=== PATIENT | female | born 1970 | race Caucasian/White ===

== ENCOUNTER 2022-10-09 06:48 | Observation (INO) ==
--- NOTE | 2022-10-08 21:47 | Anesthesiology Consultation ---
Date of Service October 08, 2022 Assessment & Plan (1) Encounter for pre-operative examination: Chart Review Chart Review: Acceptable Risk for Surgery History Surgery Operation Date: 10/09/22 08:00 Proposed Procedures p SVT Ablation w/Mapping w/Anesthesia - Anastasiya Riley DO Allergies Allergy/AdvReac Type Severity Reaction Status Date / Time No Known Allergies Allergy Unverified 11/29/19 14:26 Medications Home Medications Medication Instructions Recorded Confirmed Last Taken aspirin 81 mg chewable tablet 81 mg PO QAM 11/29/19 11/29/19 Unknown atorvastatin 20 mg tablet (Lipitor) 20 mg PO HS 11/29/19 11/29/19 Unknown eletriptan 20 mg tablet (Relpax) 20 mg PO UD PRN MIGRAINES 11/29/19 11/29/19 Unknown metoprolol tartrate 50 mg tablet 50 mg PO BID 11/29/19 11/29/19 Unknown topiramate 100 mg tablet (Topamax) 100 mg PO HS 11/29/19 11/29/19 Unknown topiramate 25 mg tablet (Topamax) 25 mg PO BID 11/29/19 11/29/19 Unknown Past Medical History Medical History (Updated 10/08/22 @ 21:45 by Felice Recio MD) ASD (atrial septal defect) Left to right shunting Hyperlipidemia Migraines SOB (shortness of breath) SVT (supraventricular tachycardia) Paroxysmal Tachycardia on beta stevan Past Surgical History Surgical History Hx laparoscopic cholecystectomy Hx of hysterectomy LAP VAGINAL ASSISTED HYSTERECTOMY Hx of tonsillectomy Social History Smoking Status: Never smoker Hx Alcohol Use: No Hx Substance Use: No substance use type: does not use Testing Echocardiogram Date: 12/10/19 EF: 60-65% LV Function: normal Other Findings: + atrial enlargement Valvular Disease: + no significant valvular disease atrial septal defect with significant left to right shunt Right ventricle dilated be functioning normally
[2022-10-09] MEDS ORDERED: LIDOCAINE 1% LOCAL 20 ML VIAL ONE (06:56)
[2022-10-09] MEDS ORDERED: MIDAZOLAM HCL 1 MG/ML 2ML VIAL ONE (07:17)
[2022-10-09] MEDS ORDERED: PROPOFOL IV EMULSION 10 MG/ML 20 ML VIAL IV ONE (07:17)
[2022-10-09] MEDS ORDERED: fentaNYL citrate 100 MCG/2 ML VIAL ONE (07:18)
[2022-10-09] MEDS ORDERED: ceFAZolin 2000MG 2,000 MG/15 ML SYR IV ONE (07:46)
--- NOTE | 2022-10-09 07:46 | History & Physical Report ---
Date of Service October 09, 2022 Assessment & Plan (1) SVT (supraventricular tachycardia): Plan: pt for EPS with possible ablation; re-discussed the procedure and potential risks with the pt; she expressed an understanding and consents signed. (2) ASD (atrial septal defect): History of Present Illness Chief Complaint: palpitations Primary Care Provider: Thomas Lin MD pt presents for an elective EPS with possible ablation due to recurrent palpitations for years that respond to vagal maneuvers in the past but are not working recently. Allergies Allergy/AdvReac Type Severity Reaction Status Date / Time No Known Allergies Allergy Verified 10/09/22 07:22 Home Medications Medication Instructions Recorded Confirmed Type aspirin 81 mg chewable tablet 81 mg PO QAM 11/29/19 10/09/22 History atorvastatin 20 mg tablet (Lipitor) 20 mg PO HS 11/29/19 10/09/22 History eletriptan 20 mg tablet (Relpax) 20 mg PO UD PRN MIGRAINES 11/29/19 10/09/22 History metoprolol tartrate 50 mg tablet 50 mg PO BID 11/29/19 10/09/22 History topiramate 25 mg tablet (Topamax) 25 mg PO HS 11/29/19 10/09/22 History Past Med/Surg History Medical History ASD (atrial septal defect) Left to right shunting Hyperlipidemia Migraines SOB (shortness of breath) SVT (supraventricular tachycardia) Paroxysmal Tachycardia on beta stevan Surgical History Hx laparoscopic cholecystectomy Hx of hysterectomy LAP VAGINAL ASSISTED HYSTERECTOMY Hx of tonsillectomy Social History Smoking Status: Never smoker Second Hand Exposure: No; Hx Alcohol Use: No Hx Substance Use: No Preferred Language: German Communication Ability: Effective Professor Of Biochemistry Required: No Beliefs That Will Affect Care: None Current Living Situation: Spouse Feels Safe at Home: Yes Safety Concerns: Feels Safe At This Time Assistive Devices: None Review of Systems Review of Systems: All systems reviewed & are unremarkable except as noted in HPI & below Physical Exam Physical Exam: aaox3, NAD NC/AT, EOMI Supple No JVD Nrl S1/S2, No murmur CTA b/l no w/r/r soft nt/nd no LE edema b/l skin intact no focal deficits Results & Data Results & Data ([facility]) Vital Signs (Past 12 Hours) Vital Signs O2 Del Method 10/09/22 07:13 Room Air
[2022-10-09] MEDS ORDERED: ceFAZolin 330 MG/ML 1 GM VIAL ONE (08:04)
[2022-10-09] MEDS ORDERED: ePHEDrine sulfate 50 MG/ML AMP ONE (08:32)
[2022-10-09] MEDS ORDERED: ISOPROTERENOL HCL 0.2 MG/ML 5 ML AMP IV ONE (08:37)
[2022-10-09] MEDS ORDERED: PROPOFOL IV EMULSION 10 MG/ML 100 ML VIAL IV ONE (09:18)
[2022-10-09] MEDS ORDERED: ONDANSETRON INJ 2 MG/ML 2 ML VIAL ONE (09:19)
--- NOTE | 2022-10-09 10:13 | Operative Report ---
Post Operative Report Pre & Post Diagnosis Pre: SVT Post: AVNRT Operation Date: 10/09/22 08:00 <No data on this case meets the specified criteria> I identified the patient and participated in the time-out.: Yes Procedure Operation Date: 10/09/22 08:00 Actual Procedures p EPS + Ablation for SVT Flutter - Anastasiya Riley DO s Ultrasound Vascular Access - Anastasiya Riley DO Surgeon Anastasiya Riley, Crew Car Driver none Estimated Blood Loss 5 Findings Consistent with Post-Op Diagnosis Specimens none Description of Procedure see official report I attest to the content of the Intraoperative Record and any orders documented therein. Any exceptions are noted below.
--- NOTE | 2022-10-09 10:39 | Anesthesiology Progress Note ---
Date of Service October 09, 2022 Anesthesia Post Procedure Vital Signs Vital Signs: Pulse Resp BP Pulse Ox O2 Del Method 10/09/22 10:36 84 16 98/73 L 98 Room Air 10/09/22 07:13 Room Air Transfer of Care Handoff Completed per policy Notes Mental Status: alert / awake / arousable Patient Amnestic to Procedure: Yes Nausea / Vomiting: adequately controlled Pain: adequately controlled Airway Patency, RR, SpO2: stable & adequate BP & HR: stable & adequate Hydration State: stable & adequate Anesthetic Complications: no major complications apparent
--- NOTE | 2022-10-09 12:16 | CT Scan Report ---
ABDOMEN AND PELVIS CT WITHOUT CONTRAST CT DOSE: 741.68 mGy.cm HISTORY: Acute right-sided abdominal pain status post cardiac ablation post ablation TECHNIQUE: Multiaxial CT images of the abdomen and pelvis were performed without contrast. A dose lo wering technique was utilized adhering to the principles of ALARA. COMPARISON STUDY: None. FINDINGS: Atrial septal occlusion device. Trace pericardial effusion. The heart is normal in size. Chowdhury bsegmental dependent bibasilar atelectasis. 5 mm solid nodule the basal left lower lobe on image 33 i s likely benign. No pneumatosis or pneumoperitoneum. The unenhanced spleen, mildly atrophic pancreas and adrenal glands are unremarkable. Cholecystectomy. The liver is within normal limits. Unremarkable right kidney. 2 mm nonobstructing calculus of the chowdhury perior pole left kidney. 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 No ureteral calculi or hydronephrosis. Partially decompressed urinary bladder with mild wall thickening. Hysterectomy.. Unr emarkable appearance of the unenhanced aorta. There is decreased AP dimension of the IVC. There is an acute right-sided retroperitoneal hematoma measuring up to approximately 4.7 x 10.0 x 19.0 cm abutti ng and encasing the right external iliac vein. No intramuscular extension identified. No bowel obstruction or bowel wall thickening. Stranding within the right inguinal tissues compatible with recent vascular access. Mild colonic fecal retention. Normal appendix. Unremarkable soft tissue s. There is no acute fracture. Chronic left-sided L5 pars defects without spondylolisthesis. IMPRESSION: 1. Acute right-sided retroperitoneal hematoma measures up to approximately 19 cm in length abuts and encases the right external iliac vein compatible with acute vascular injury in this patient with rece nt right inguinal vascular access. 2. Left nephrolithiasis. 3. Incidental findings as above. ACT 112: Negative or not required by law. The above report was generated using voice recognition software. It may contain grammatical, syntax o r spelling errors. Electronically signed by: Ori Hensley M.D. 10/09/2022 12:14 PM
--- NOTE | 2022-10-09 12:43 | Cardiology Progress Note ---
Date of Service October 09, 2022 Assessment & Plan (1) Retroperitoneal hematoma: Plan: pt had post op RLQ pain; a CT scan was performed that revealed a retroperitoneal hematoma wrapping around the right iliac vein. I spoke with vascular surgery who recommended no intervention necessary; monitor H/H and vitals. Will admit to telemetry overnight Hold ASA and metoprolol for now Bedrest until tomorrow If remains stable from a vital signs, H/H and ambulates ok then hopefully can discharge tomorrow and have repeat CT scan as an outpt (2) AVNRT (AV apple re-entry tachycardia): Plan: s/p Slow pathway modification ablation (3) ASD (atrial septal defect): Subjective Pt had + right lower abdominal pain Physical Exam Physical Exam: aaox3, NAD NC/AT, EOMI Supple No JVD Nrl S1/S2, No murmur CTA b/l no w/r/r soft nt/nd no LE edema b/l skin intact no focal deficits Results & Data ([facility]) Vital Signs (Past 12 Hours) Vital Signs Pulse Resp BP Pulse Ox O2 Del Method 10/09/22 12:30 78 14 110/73 99 Room Air 10/09/22 12:00 78 16 107/77 98 Room Air 10/09/22 11:45 80 16 115/81 99 Room Air 10/09/22 11:30 82 14 115/72 98 Room Air 10/09/22 11:15 82 16 107/72 99 Room Air 10/09/22 11:00 84 16 94/70 L 98 Room Air 10/09/22 10:45 84 16 94/65 L 98 Room Air 10/09/22 10:20 82 16 90/72 L 98 Room Air 10/09/22 10:36 84 16 98/73 L 98 Room Air 10/09/22 07:13 Room Air Diagnostic Findings CT pelvis: +retroperitoneal hematoma 9cm wrapping around the right iliac vein
[2022-10-09] MEDS ORDERED: ACETAMINOPHEN 325 MG TAB PO PRN (12:51)
[2022-10-09 13:33] LABS: Hematocrit (blood only) 38.8 % (34.1-44.9); Hemoglobin 12.5 g/dl (12.0-16.0); Mean Corpuscular Hemoglobin 29.4 pg (25.0-34.0); Mean Corpuscular Hgb Conc 32.2 g/dL (32.0-36.0); Mean Corpuscular Volume 91.3 fL (80.0-100.0); Mean Platelet Volume 11.7 fL (9.4-12.3); Platelet Count 208 K/uL (130-400); RDW Coefficient of Variation 13.1 % (11.5-14.5); RDW Standard Deviation 43.4 fL (36.4-46.3); Red Blood Count 4.25 M/uL (3.93-5.22); White Blood Count 14.19 K/ul (4.8-10.8)
[2022-10-09 13:57] LABS: Calcium 8.5 mg/dl (8.5-10.1); Creatinine Clr Calc Pharmacy 82.8 ml/min; Est GFR (African American) 101.5 ml/min; Est GFR (Non-African American) 87.5 ml/min; Potassium 3.9 mmol/L (3.5-5.1)
[2022-10-09] MEDS: oxyCODONE/ACETAMINOPHEN 5mg/325mg TAB PO PRN ×2 (13:59→23:28)
--- NOTE | 2022-10-09 14:39 | Electrocardiogram Report ---
Test Reason : Blood Pressure : / mmHG Vent. Rate : 079 BPM Atrial Rate : 079 BPM P-R Int : 154 ms QRS Dur : 074 ms QT Int : 420 ms P-R-T Axes : 063 035 066 degrees QTc Int : 481 ms Normal sinus rhythm Nonspecific ST abnormality Prolonged QT Abnormal ECG No previous ECGs available Confirmed by Yoav Merida ([id number]) on 10/09/2022 2:38:38 PM Referred By: Anastasiya Riley Confirmed By:Yoav Merida
[2022-10-09] MEDS ORDERED: TOPIRAMATE 25 MG TAB PO SCH (21:00)
[2022-10-09] MEDS ORDERED: ATORVASTATIN 20 MG TAB PO SCH (21:00)
[2022-10-09 21:35] LABS: Hematocrit (blood only) 32.9 % (34.1-44.9); Mean Corpuscular Hemoglobin 29.5 pg (25.0-34.0); Mean Corpuscular Hgb Conc 33.4 g/dL (32.0-36.0); Mean Corpuscular Volume 88.2 fL (80.0-100.0); Mean Platelet Volume 11.9 fL (9.4-12.3); Platelet Count 205 K/uL (130-400); RDW Standard Deviation 41.7 fL (36.4-46.3); Red Blood Count 3.73 M/uL (3.93-5.22)
[2022-10-10] MEDS: oxyCODONE/ACETAMINOPHEN 5mg/325mg TAB PO PRN ×2 (06:53→16:24)
[2022-10-10 07:13] LABS: Hemoglobin 10.9 g/dl (12.0-16.0); Mean Corpuscular Hemoglobin 29.7 pg (25.0-34.0); Mean Corpuscular Volume 89.9 fL (80.0-100.0); Mean Platelet Volume 11.6 fL (9.4-12.3); Platelet Count 184 K/uL (130-400); RDW Coefficient of Variation 13.1 % (11.5-14.5); RDW Standard Deviation 42.8 fL (36.4-46.3); Red Blood Count 3.67 M/uL (3.93-5.22); White Blood Count 7.65 K/ul (4.8-10.8)
--- NOTE | 2022-10-10 12:36 | Cardiology Progress Note ---
Date of Service October 10, 2022 Assessment & Plan (1) Retroperitoneal hematoma: Plan: Pt H/H remains stable. She still has discomfort at the lower groin site. If she ambulates more throughout the day and feels ok and vitals are ok she can go home later today She will have f/u with me and a f/u CT as an outpt I also recommend she look into FMLA as I think she having next week off would be beneficial for her healing (2) AVNRT (AV apple re-entry tachycardia): Plan: can stop metoprolol (3) ASD (atrial septal defect): Plan: restart ASA as H/H is stable Admission and Anticipated Discharge Date Admission Date: October 09, 2022 Subjective Pt seen earlier today Pt had no events overnight She was up to the bedside commode a few times and does still have some pain and discomfort still in the right lower groin level Review of Systems Review of Systems: All systems reviewed & are unremarkable except as noted in Subjective Physical Exam Physical Exam: aaox3, NAD NC/AT, EOMI Supple No JVD Nrl S1/S2, No murmur CTA b/l no w/r/r soft nt/nd rigth lower quadrant soft no palpable hematoma but is naphthalene still operator no LE edema b/l skin intact no focal deficits Results & Data ([facility]) Vital Signs (Past 12 Hours) Vital Signs Temp Pulse Pulse Resp BP BP Pulse Ox 10/10/22 11:30 91 H 17 99 10/10/22 11:20 87 19 98 10/10/22 11:20 112/68 10/10/22 11:00 78 10 L 99 10/10/22 10:40 84 18 99 10/10/22 11:36 36.9 C 10/10/22 08:12 36.7 C 87 16 88/64 L 99 10/10/22 03:36 36.6 C 81 16 102/68 98 O2 Del Method 10/10/22 11:30 Room Air 10/10/22 11:20 10/10/22 11:20 10/10/22 11:00 10/10/22 10:40 10/10/22 11:36 10/10/22 08:12 Room Air 10/10/22 03:36 Room Air Laboratory Results Abnormal Lab Results 10/09/22 10/09/22 10/09/22 13:16 13:16 20:42 WBC 14.19 H 11.00 H RBC 4.25 3.73 L Hgb 12.5 11.0 L Hct 38.8 32.9 L MCV 91.3 88.2 MCH 29.4 29.5 MCHC 32.2 33.4 RDW Std Deviation 43.4 41.7 RDW Coeff of Char 13.1 13.0 Plt Count 208 205 MPV 11.7 11.9 Sodium 139 Potassium 3.9 Chloride 110 H Carbon Dioxide 21 Anion Gap 8 BUN 10 Creatinine 0.77 Est Cr Clr Drug Dosing 82.8 Est GFR ( Amer) 101.5 Est GFR (Non-Af Amer) 87.5 BUN/Creatinine Ratio 13.0 Glucose 119 H Calcium 8.5 10/10/22 06:26 WBC 7.65 RBC 3.67 L Hgb 10.9 L Hct 33.0 L MCV 89.9 MCH 29.7 MCHC 33.0 RDW Std Deviation 42.8 RDW Coeff of Char 13.1 Plt Count 184 MPV 11.6 Sodium Potassium Chloride Carbon Dioxide Anion Gap BUN Creatinine Est Cr Clr Drug Dosing Est GFR ( Amer) Est GFR (Non-Af Amer) BUN/Creatinine Ratio Glucose Calcium
[2022-10-10] MEDS ORDERED: ONDANSETRON INJ 2 MG/ML 2 ML VIAL IV PRN (17:32)
[2022-10-10] MEDS ORDERED: ONDANSETRON INJ 2 MG/ML 2 ML VIAL ONE (17:33)
--- NOTE | 2022-10-21 06:41 | Operative Report (OR) ---
DATE OF PROCEDURE: 10/09/2022. PREOPERATIVE DIAGNOSIS: Supraventricular tachycardia. POSTOPERATIVE DIAGNOSIS: Typical atrioventricular apple reentry tachycardia. SURGEON: Anastasiya Riley DO SENIOR TELECOMMUNICATIONS SPECIALIST: None. PROCEDURE: Electrophysiology study, venous ultrasound guidance access, slow pathway modification radiofrequency ablation, and 3D His bundle and coronary sinus os recordings. ANESTHESIA: Monitored anesthetic care administered via anesthesiology. Please refer to their notes for complete details, but they used a total of 530 mg of propofol, 2 mg of Versed, and 100 mcg of fentanyl. They gave 20 mg of ephedrine and 4 mg of Zofran. The start time was 0824, end time was 1014. INTRAVENOUS FLUIDS: 300 mL. ANTIBIOTICS: 2 grams of Ancef. COMPLICATIONS: A retroperitoneal hematoma. INDICATIONS FOR PROCEDURE: This is a 52-year-old female with a past medical history for ASD closure device, hyperlipidemia, migraines. He has been having episodes of SVT and was recommended an electrophysiology study with possible ablation. CONSENT: Consent was obtained prior to the patient going into the electrophysiology lab. The patient was informed of the risks, benefits, and alternatives to the procedure. Risks include, but are not limited to, sudden cardiac , cardiac arrhythmia, cerebrovascular accident, myocardial infarction, injury to the blood vessels, chamber of the heart or the [place] electrical system where she would need a permanent pacemaker emergently, bleeding, and infection. The patient understood these risks and agreed to the procedure as planned. Informed consent was obtained. DESCRIPTION OF THE PROCEDURE: The patient was brought into the electrophysiology lab in a fasting state. She was connected to continuous cardiac monitoring. A time-out was performed to ensure patient identity and procedure correctly. She was prepped and draped over the bilateral groins in a normal surgical standard fashion. Monitored anesthetic care was given throughout the procedure for patient's comfort level. [place] precautions were maintained throughout the procedure. A 10 mL of 1% lidocaine were given for local anesthesia in the bilateral groins. Then, using the modified Seldinger technique under ultrasound guidance, the venous access was obtained through the following manner. The left femoral vein had a 7-Bangladeshi sheath followed by a decapolar coronary sinus DF curved catheter positioned out in the coronary sinus. A 7-Bangladeshi sheath followed by a Hisser 6-pole catheter positioned over the His bundle. A 6-Bangladeshi sheath followed by a Kori quadripolar catheter positioned in the right ventricular apex. The right femoral vein had a 6-Bangladeshi sheath with a quadripolar Kori catheter positioned in the right atrial appendage and a 6-Bangladeshi sheath that was ultimately swapped out for an SRO and a 4 mm DF curved non-irrigated ablation catheter. With all the diagnostic catheters in position, an electrophysiology study was performed with the following findings: Baseline intervals, sinus cycle length was 785 milliseconds, the NM interval was 176 milliseconds, the QRS was 71 milliseconds, and the QTc was 375 milliseconds, AH was 71 milliseconds, HV 61 milliseconds. With right atrial burst pacing, I easily went into tachycardia. Tachycardia cycle length was 393 milliseconds. VA time was 58 milliseconds. It started with an AH jump. I was burst atrial pacing at 350 milliseconds. With ventricular entrainment, I did have a VAV response with continuation of the tachycardia, confirming that it was AVNRT. I did find the fast pathway ERP to be 600/300 with some echo beat and I easily reinduced the SVT again at 600/280 with atrial extrastimuli. The atrial ERP was 600/260. The AV node ERP was less than or equal to the atrial ERP at [address] The right ventricular ERP was 600/250 and 400/220, I was nable to finish a 400 drive train as I kept going into the SVT at 400/330 milliseconds, and I never was able to find an AV Wenckebach because I kept going into the SVT. With the recurrent easily inducible SVT that was diagnosed as AVNRT, we set up to do an AVNRT ablation. A 6-Bangladeshi right femoral vein sheath was swapped out for an SRO sheath. Then the 4mm DF curved non-irrigated ablation catheter was advanced through the SRO sheath and then intracardiac His bundle cloud 3D mapping was performed along with the os of the coronary sinus. I then placed the ablation catheter on the low right atrial septum and when I had a nice A:V ratio, I then came on ablation. I easily got some nice junctionals. I thought I had given enough, so I then packed the ablation catheter out and did a post-ablation testing with the following findings: The NM interval was 163 milliseconds, QRS 82 milliseconds, QT 384 milliseconds. Sinus cycle length 796 milliseconds, AH 52 milliseconds, HV 52 milliseconds, AV Wenckebach 360 milliseconds. Fast pathway ERP was 600/310 with one echo. The AV node ERP was less than or equal to the atrial ERP at 600, but I did end up seeing 2 echo beats, so I stopped doing post-ablation testing and went in to give more allen. I advanced the ablation catheter back into the low right atrial septum and started giving a series of more radiofrequency allen at 35 and 25 chapa. I did not get as much junctionals as where I was before, so I did go up a little bit higher. I was pretty close to the His and I got some more junctionals. I then felt confident enough, [facility] post[facility]ation electrophysiology study was performed with the following findings: Sinus cycle length 851 milliseconds, NM 144 milliseconds, QRS 76 milliseconds, QT 382 milliseconds, AH was 52 milliseconds, HV 58 milliseconds, AV Wenckebach was 380 milliseconds. Fast pathway ERP was 600/310 and 430/350 with one echo beat. The AV node ERP was less than or equal to the atrial ERP at a [address]. The AV node ERP was 400/270 and the atrial ERP was 600/274 and 430/250. The right ventricular ERP was 600/260 and 400/220. I gave up to triples from the right atrial extrastimuli from the high right atrium without any inducible AVNRT. I then removed all the catheters and all the sheaths and manual compression was used to establish hemostasis. IMPRESSION: 1. Easily inducible typical atrioventricular apple reentry tachycardia, with a successful slow pathway radiofrequency modification ablation. 2. Dual AV apple pathology. PLAN: Monitor the patient post-procedure, a 12-lead ECG, and she is to lie flat for 2 hours and I am going to most likely discharge her home. But about an hour after the procedure, she started having a lot of right of lower pelvic quadrant pain. There was a palpable hematoma, compression was applied which improved the hematoma., and a CT was performed, which identified a retroperitoneal hematoma. So the patient ended up being admitted overnight and monitored. She will follow up in my office in 1 month's time and she can stop her AV apple blockers. Job ID: [id number] [facility] SYSTEM[facility]don
== END 2022-10-10 18:17 | disposition home or self-care (01) ==
LOC: 1E 06:48 → EP 06:48